=== PATIENT | female | born 1990 | race Caucasian/White ===

== ENCOUNTER 2024-07-31 08:00 | Inpatient (IN) ==
[2024-07-31] MEDS ORDERED: LIDOCAINE 1% LOCAL 20 ML VIAL INFIL PRN (08:11)
[2024-07-31] MEDS ORDERED: OXYTOCIN 30 UNITS/NSS 30 UNITS/500 ML BAG IV PRN (08:11)
[2024-07-31] MEDS: LACTATED RINGER'S 1,000 ML IV SCH (09:05)
[2024-07-31 09:13] LABS: Hematocrit (blood only) 30.1 % (37.0-47.0); Hemoglobin 9.6 g/dl (12.0-16.0); Mean Corpuscular Hemoglobin 25.5 pg (25.0-34.0); Mean Corpuscular Hgb Conc 31.9 g/dL (32.0-36.0); Mean Corpuscular Volume 79.8 fL (80.0-100.0); Mean Platelet Volume 12.2 fL (9.4-12.4); Nucleated RBC # (auto) 0.02 K/uL (0.00-0.12); Nucleated RBC % (auto) 0.2 %; Platelet Count 209 K/uL (130-400); RDW Coefficient of Variation 15.3 % (11.5-14.5); RDW Standard Deviation 44.5 fL (36.4-46.3); Red Blood Count 3.77 M/uL (4.20-5.40); White Blood Count 11.47 K/ul (4.8-10.8)
[2024-07-31] MEDS: OXYTOCIN 30 UNITS/NSS 30 UNITS/500 ML BAG IV PRN ×2 (09:52→20:24)
--- NOTE | 2024-07-31 09:53 | History & Physical Report ---
Date of Service July 31, 2024 Assessment & Plan (1) Mild pre-eclampsia: (2) Gestational diabetes: Plan 34 yo at 37 3/7 wga presents for IOL for pre-eclampsia w/o severe features VSS Fetus cat 1 Labor - 35cc berkowitz placed, will start pit PET - will get cmp today, bp wnl A1GDM, bg q4 GBS neg epidural prn Admission and Anticipated Discharge Date Admission Date: July 31, 2024 History of Present Illness Chief Complaint: IOL Primary Care Provider: NO PCP 34 yo at 37 3/7 wga presents for IOL for pre-eclampsia w/o severe features. 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 Date GA wks Lbr Lgth wt Sex Type del Anes Place Del Prov ? Comment 12/04/20 4 Aborted-Spontaneous 01/03/21 4 Aborted-Spontaneous 11/02/21 34 4lb 6oz F Epidu [facility] Yes severe pre- eclampsia denies hx stis Allergies Allergy/AdvReac Type Severity Reaction Status Date / Time pollen extracts Allergy Unknown Unknown Verified 07/30/24 15:12 Home Medications Medication Instructions Recorded Confirmed Type 21-iron fu-folic acid 1 tab PO DAILY 01/16/24 07/31/24 History [ Complete] acetone (urine) test (Ketone Urine #50 ea 03/22/24 07/30/24 Rx Test strips) blood sugar diagnostic (OneTouch #150 ea 03/22/24 07/30/24 Rx Verio test strips) blood-glucose meter (OneTouch #1 ea 03/22/24 07/30/24 Rx Verio Reflect Meter) lancets 33 gauge (OneTouch Delica #150 ea 03/22/24 07/30/24 Rx Plus Lancet) sertraline [Zoloft] 20 mg PO DAILY 04/03/24 07/31/24 History aripiprazole 2 mg tablet (Abilify) 2 mg PO DAILY 07/31/24 07/31/24 History aspirin 81 mg capsule 81 mg PO DAILY 07/31/24 07/31/24 History ferrous sulfate 325 mg (65 mg 325 mg PO DAILY 07/31/24 07/31/24 History iron) tablet (Iron (ferrous sulfate)) Patient History Medical History (spontaneous vaginal delivery) 2021 History of pre-eclampsia History of chicken pox Surgical History History of esophagogastroduodenoscopy (EGD) History of dental surgery Hx of colonoscopy Family History Father Heart disease Cancer Alcohol abuse Sister Heart disease Grandmother (Maternal) Heart disease Diabetes Mother Depression Dyslipidemia Anxiety Grandfather (Maternal) Colorectal cancer Denies family history of Ovarian cancer Prostate cancer Breast cancer Social History Smoking Status: Never smoker Second Hand Exposure: Yes; Do You Dip or Chew Tobacco: No; Tobacco Cessation Education Requested by Patient: No Hx Alcohol Use: No Hx Substance Use: No Preferred Language: Liberian Communication Ability: Effective Visual Impairment: No Limitations Hearing Ability: Normal Non Destructive Testing Supervisor Required: No Beliefs That Will Affect Care: None marital status: marital status details: Daniel Cobos (29) [phone] Current Living Situation: Spouse Current Living Situation Comment: Daniel- , Peach- 3y/o daughter current occupational status: employed 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, 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 How many Children do You have: 0 Other Information That Helps Us Care for You: No Feels Safe at Home: Yes Safety Concerns: Feels Safe At This Time Do you think of yourself as: straight/heterosexual Sexual Activity: has been sexually active within the last 12 months Gender Identity: Female Assistive Devices: None Physical Exam Genitourinary: OB Exam Abdomen: + vertex (confirmed by bsus) and + estimated weight (7-8) Manual OB Exam: + cervical dilation 2 cm, + cervical effacement 50% and + station -2 OB Exam Monitor Tracing: + external FHT monitor used, + external uterine monitor used and + category I (130/mod/+accel/- decel) Results & Data Vital Signs (Past 12 Hours) Vital Signs Temp Pulse Resp BP 07/31/24 09:28 103 H 131/87 07/31/24 08:39 98 H 137/91 07/31/24 08:37 98.1 F 98 H 20 137/91 Laboratory Results OB Labs: Blood Type A Positive 01/23/24 Antibody Screen NEGATIVE 01/23/24 Hgb 10.4 g/dl (12.0-16.0) L 07/26/24 Hct 33.5 % (37.0-47.0) L 07/26/24 MCV 81.5 fL (80.0-100.0) 07/26/24 Plt Count 239 K/uL (130-400) 07/26/24 Rubella IgG Antibody Immune (Immune) 01/23/24 RPR Nonreactive (Nonreactive) 01/23/24 Treponema pallidum Ab Negative (Negative) 07/26/24 Hep Bs Antigen Neg (Neg) 05/07/21 Hep Bs Antigen NON-REACTIVE (NON-REACTIVE) 01/23/24 Hepatitis C Ab (EIA) NON-REACTIVE (NON-REACTIVE) 01/23/24 HIV 1&2 Ab/P24 Ag 4thGn Neg (Neg) 05/07/21 HIV (1&2) Ag & Ab Conf NON-REACTIVE (NON-REACTIVE) 01/23/24 Glucose 1 Hr 50 gm 197 mg/dl (70-130) H 03/13/24 Maternal Serum AFP 41.1 ng/mL 06/29/21 OB Optional Labs: Chlamydia trachomatis RNA Not Detected (NotDetected) 01/23/24 Neisseria gonorrhoeae RNA Not Detected (NotDetected) 01/23/24 Alpha Fetoprotein Triple Screen SEE NOTE 06/29/21 Labs Reviewed: cf/sma declined cfdna-low risk--mln GBS neg Diagnostic Findings 07/26 EFW 73% 3193g ant plac Coding Level of Care Code None Diagnoses Mild pre-eclampsia in third trimester O14.03 Trimester: third trimester Gestational diabetes O24.419 (1) Mild pre-eclampsia Trimester: third trimester Qualified Code(s): O14.03 - Mild to moderate pre- eclampsia, third trimester
[2024-07-31 10:26] LABS: Albumin Globulin Ratio 1.2 (0.9-2); Albumin Level 2.9 gm/dl (3.4-5.0); BUN Creatinine Ratio 14.5 (10-20); Bilirubin,Total 0.3 mg/dl (0.2-1.0); Calcium 8.3 mg/dl (8.6-10.3); Creatinine Clr Calc Pharmacy 176.4 ml/min; Globulin 2.4 gm/dl (2.5-4.0); Potassium 3.5 mmol/L (3.5-5.1); Total Protein 5.3 gm/dl (6.0-8.3)
--- NOTE | 2024-07-31 14:26 | Labor Progress Brief Note ---
Date of Service July 31, 2024 Subjective berkowitz bulb out Assessment & Plan (1) Mild pre-eclampsia: Trimester: third trimester Qualified Code(s): O14.03 - Mild to moderate pre-eclampsia, third trimester (2) Gestational diabetes: Plan 34 yo at 37 3/7 wga presents for IOL for pre-eclampsia w/o severe features VSS Fetus cat 1 Labor - bulb out, pit at 12, now s/p arom PET - labs wnl A1GDM, bg q4 GBS neg epidural prn Admission and Anticipated Discharge Date Admission Date: July 31, 2024 Physical Exam Genitourinary: Manual OB Exam: + cervical dilation 4 cm, + cervical effacement 50%, + station -2 and + amniotic fluid (arom clear) OB Exam Monitor Tracing: + external FHT monitor used, + external uterine monitor used (q3-4) and + category I (130/mod/+accel/-decel) Results & Data Vital Signs (Past 12 Hours) Vital Signs Temp Pulse Resp BP 07/31/24 14:15 98.1 F 07/31/24 13:58 98 H 124/86 07/31/24 13:28 95 H 136/87 07/31/24 12:28 101 H 130/90 07/31/24 12:19 95 H 146/91 H 07/31/24 12:03 97.5 F L 98 H 16 155/92 H 07/31/24 11:28 96 H 146/81 H 07/31/24 10:59 106 H 137/86 07/31/24 10:28 97 H 133/82 07/31/24 09:58 102 H 136/91 07/31/24 09:28 103 H 131/87 07/31/24 08:39 98 H 137/91 07/31/24 08:37 98.1 F 98 H 20 137/91 Coding Level of Care Code None Diagnoses Mild pre-eclampsia in third trimester O14.03 Trimester: third trimester Gestational diabetes O24.419
[2024-07-31] MEDS ORDERED: fentANYL 2 MCG/ML BUPIVacaine 0.125%-NSS 100ML BAG EPI PRN (14:46)
[2024-07-31] MEDS ORDERED: LIDOCAINE 2% MPF LOCAL 5 ML VIAL EPI PRN (14:46)
[2024-07-31] MEDS ORDERED: NALOXONE HCL 1 MG in SODIUM CHLORIDE 0.9% 1,000 ML IV PRN (14:46)
[2024-07-31] MEDS ORDERED: NALOXONE HCL 0.4 MG/1 ML VIAL/CARP IV PRN (14:46)
[2024-07-31] MEDS ORDERED: NALBUPHINE HCL INJ 10 MG/ML AMP IV PRN (14:46)
[2024-07-31] MEDS ORDERED: fentaNYL citrate PF 100 MCG/2 ML VIAL EPI PRN (14:46)
[2024-07-31] MEDS ORDERED: ePHEDrine sulfate 50 MG/ML AMP IV PRN (14:46)
[2024-07-31] MEDS ORDERED: diphenhydrAMINE 50 MG/ML VIAL IV PRN (14:46)
[2024-07-31] MEDS ORDERED: BUPIVACAINE 0.25% PF 30 ML VIAL EPI PRN (14:46)
[2024-07-31] MEDS ORDERED: SODIUM CHLORIDE 0.9% PF INJ 10 ML VIAL EPI PRN (14:46)
[2024-07-31] MEDS ORDERED: ROPIVACAINE 0.5% PF 5 MG/ML 20 ML VIAL EPI PRN (14:46)
--- NOTE | 2024-07-31 14:46 | Anesthesiology Consultation ---
Date of Service July 31, 2024 Assessment & Plan (1) Encounter for pre-operative examination: Chart Review Chart Review: Patient NOT seen in Pre Admission Testing and Acceptable Risk for Labor Epidural Consults Requested none History Height/Weight Height: 5 ft 8 in Weight: 96.162 kg Allergies Allergy/AdvReac Type Severity Reaction Status Date / Time pollen extracts Allergy Unknown Unknown Verified 07/30/24 15:12 Medications Home Medications Medication Instructions Recorded Confirmed Last Taken 21-iron fu-folic acid 1 tab PO DAILY 01/16/24 07/31/24 07/17/24 22:00 [ Complete] acetone (urine) test (Ketone Urine #50 ea 03/22/24 07/30/24 Unknown Test strips) blood sugar diagnostic (OneTouch #150 ea 03/22/24 07/30/24 Unknown Verio test strips) blood-glucose meter (OneTouch #1 ea 03/22/24 07/30/24 Unknown Verio Reflect Meter) lancets 33 gauge (OneTouch Delica #150 ea 03/22/24 07/30/24 Unknown Plus Lancet) sertraline [Zoloft] 20 mg PO DAILY 04/03/24 07/31/24 07/31/24 06:00 aripiprazole 2 mg tablet (Abilify) 2 mg PO DAILY 07/31/24 07/31/24 07/30/24 21:00 aspirin 81 mg capsule 81 mg PO DAILY 07/31/24 07/31/24 07/31/24 06:00 ferrous sulfate 325 mg (65 mg 325 mg PO DAILY 07/31/24 07/31/24 07/31/24 06:00 iron) tablet (Iron (ferrous sulfate)) Active Medications Generic Name Dose Route Start Last Admin Trade Name Freq PRN Reason Stop Dose Admin Oxytocin 30 units in 500 mls @ 14 mls/hr 07/31/24 08:11 07/31/24 13:45 Pitocin 30 Units/Nss IV 08/02/24 08:10 0.84 units/hr .Q24H PRN 14 mls/hr Labor Induction/Augmentation Titration Protocol 0.84 UNITS/HR Past Medical History Medical History (spontaneous vaginal delivery) 2021 History of pre-eclampsia History of chicken pox Past Family History Family History Father Heart disease Cancer Alcohol abuse Sister Heart disease congenital heart defect--mitral valve Grandmother (Maternal) Heart disease Diabetes Mother Depression Dyslipidemia Anxiety Grandfather (Maternal) Colorectal cancer Denies family history of Ovarian cancer Prostate cancer Breast cancer Past Surgical History Surgical History History of esophagogastroduodenoscopy (EGD) History of dental surgery Hx of colonoscopy Social History Smoking Status: Never smoker Do You Dip or Chew Tobacco: No Hx Alcohol Use: No Alcohol type: wine alcohol intake frequency: a few times a month Hx Substance Use: No substance use type: does not use Physical Exam Vital Signs Last Vital Signs Temp 98.1 F 07/31/24 14:15 Pulse 101 H 07/31/24 14:43 Resp 16 07/31/24 12:03 BP 139/83 07/31/24 14:28 Pulse Ox 99 07/31/24 14:43 Testing Laboratory Results 07/31/24 08:40 07/31/24 08:40 Blood Type A Positive 07/31/24 08:40 Antibody Screen NEGATIVE 07/31/24 08:40 07/31/24 07/31/24 07/31/24 13:44 10:55 08:55 POC Glucose 81 89 130 H
[2024-07-31] MEDS: LIDOCAINE 2%/EPINEPHRINE 1:200,000 20 ML PF ONE (15:05)
[2024-07-31] MEDS: SODIUM CHLORIDE 0.9% PF INJ 10 ML VIAL ONE (15:05)
[2024-07-31] MEDS: fentANYL 2 MCG/ML BUPIVacaine 0.125%-NSS 100ML BAG ONE (15:05)
[2024-07-31] MEDS: fentaNYL citrate PF 100 MCG/2 ML VIAL ONE (15:05)
[2024-07-31] MEDS: BUPIVACAINE 0.25% PF 30 ML VIAL ONE (15:05)
[2024-07-31] MEDS: ePHEDrine sulfate 50 MG/ML AMP ONE (15:05)
--- NOTE | 2024-07-31 20:01 | Delivery Summary ---
Vaginal Delivery Summary Date of Service July 31, 2024 Vaginal Delivery Summary [facility] PREOPERATIVE DIAGNOSIS: 1. Single intrauterine at 37 3/7 wga 2. Pre-eclampsia without severe features 3. A1GDM 4. History of hemorrhage POSTOPERATIVE DIAGNOSIS: 1. Single intrauterine at 37 3/7 wga 2. Pre-eclampsia without severe features 3. A1GDM 4. History of hemorrhage 5. Delivered PROCEDURE: 1. Normal spontaneous vaginal delivery. SURGEON: Haylie Bermudez MD ANESTHESIA: Epidural. QUANTITATIVE BLOOD LOSS:115 mL FLUIDS: Continuous LR. URINE OUTPUT: None. COMPLICATIONS: None. CONDITION: Stable. INDICATIONS: 34 yo at 37 3/7 wga presented for IOL for pre-eclampsia without severe features. Induction was begun with berkowitz bulb and pitocin. Following bulb expulsion, she underwent arom and received an epidural. She progressed to complete and desired to push FINDINGS: A viable female infant, weight pending with Apgars of 7 and 8 at 1 and 5 minutes respectively. SPECIMEN: Cord blood OPERATIVE REPORT: The patient progressed to 10 cm, 100% effaced and +2 station, pushed over intact perineum with anesthesia to deliver a viable female infant, weight and Apgars as above. Head of delivered in JUNIOR position. Body cord was delivered through. Body and shoulders were delivered without difficulty. was delivered to maternal abdomen and nursing staff. Delayed cord clamping was performed for 60 seconds. Cord was clamped and cut. Cord blood was obtained. Placenta delivered spontaneously intact with 3-vessel cord. IV oxytocin and fundal massage were given for excellent hemostasis. Vagina, cervix, perineum, and placenta were inspected. A hemostatic periclitoral laceration did not need repaired. Sponge and needle counts correct x2. No sponges were left behind. Mother and stable in immediate period. [facility] Vaginal Delivery Charge Vaginal Delivery Codes: 03620 global code for the antepartum, delivery, and post- Delivery Type Details: [facility]
[2024-07-31] MEDS ORDERED: HYDROCORTISONE ACETATE 25 MG SUPP PR PRN (20:15)
[2024-07-31] MEDS ORDERED: bisacodyL 10 MG SUPP PR PRN (20:15)
[2024-07-31] MEDS: DIPHTHER/TETAN/PERTUS Vaccine (Tdap, Adol/Adult) 0.5mL IM ONE (20:31)
[2024-07-31] MEDS: LIDOCAINE 2%/EPINEPHRINE 1:200,000 20 ML PF EPI STA (20:48)
[2024-07-31] MEDS: BUPIVACAINE 0.25% PF 30 ML VIAL EPI STA (20:48)
[2024-07-31] MEDS: SODIUM CHLORIDE 0.9% PF INJ 10 ML VIAL EPI STA (20:48)
[2024-07-31] MEDS: fentaNYL citrate PF 100 MCG/2 ML VIAL EPI STA (20:48)
[2024-07-31] MEDS: DOCUSATE SODIUM 100 MG CAP PO SCH (20:49)
[2024-07-31] MEDS: miSOPROStoL 200 MCG TAB PR ONE (21:30)
[2024-07-31] MEDS: IBUPROFEN 600 MG TAB PO PRN (22:07)
[2024-07-31] MEDS: ACETAMINOPHEN 325 MG TAB PO PRN (22:07)
--- NOTE | 2024-07-31 22:09 | Communication Note ---
Date of Service: July 31, 2024 Called by nursing due to passage of clots with last fundal check. QBL 441 at that point. Fundus firm on my check, appropriate lochia. 1000mcg cytotec placed due to htn and hx asthma, extra bag of pitocin run
--- NOTE | 2024-07-31 22:17 | Anesthesia Procedure Note ---
Date of Service July 31, 2024 Anesthesia Post Epidural Note Vital Signs Vital Signs: Temp Pulse Resp BP Pulse Ox 98.1 F 112 H 18 143/89 H 100 07/31/24 19:00 07/31/24 21:59 07/31/24 19:00 07/31/24 21:59 07/31/24 20:03 Pain Intensity Abdomen: Pain Intensity: 0 Notes Mental Status: alert / awake / arousable and participated in evaluation Nausea / Vomiting: adequately controlled Pain: adequately controlled Airway Patency, RR, SpO2: stable & adequate BP & HR: stable & adequate Hydration State: stable & adequate Neuraxial Anesthesia: was administered and sensory block is resolving Anesthetic Complications: no major complications apparent and Pt Satisfied with anesthetic care Epidural: Removed without complications and With tip intact
[2024-07-31] MEDS ORDERED: Nursing to Pharmacy Communication SCH (23:15)
[2024-07-31] MEDS: ARIPIprazole 1 MG/ML ORAL SOLN 150 ML BTL PO SCH (23:15)
--- NOTE | 2024-08-01 05:33 | Obstetrical Progress Note ---
Date of Service August 01, 2024 Assessment & Plan (1) Encounter for care and examination after delivery: Plan Encourage ambulation Encourage breast feeding Monitor BPs Continue pain meds as needed Likely discharge 08/02/24 Admission and Anticipated Discharge Date Admission Date: July 31, 2024 Supervising Physician Co-Signing Physician Notes Resident Physician Supervision Note: I interviewed and examined the patient. Discussed with Dr. Rojas and agree with findings and plan as documented in the note. Any exceptions or clarifications are listed here: PP1 s/p . Low mild range BPs, exam benign and wnl. Will monitor bps today, ?dc at 24hrs if stable. Otherwise dc tomorrow Documented By: Haylie Bermudez MD Subjective Pt is 34 yo post- day 1 s/p at 37w3d. was complicated by pre-eclampsia without severe features and GDM. Ambulation:In room Voiding:voiding normally Passing gas: yes BM: yes Diet tolerance:regular diet Lochia:small amount bloody, no clots Feeding type: breast Current pain level: 4 /10 improved with ibuprofen and Tylenol Resting comfortably this morning in NAD. Denies العلي, CP, SOB, N/V/D, LE pain/swelling. Review of Systems Review of Systems: As per HPI Physical Exam Constitutional: WD/WN, vitals as above Respiratory: normal respiratory effort, lungs clear to auscultation Gastrointestinal (Abdomen): normal bowel sounds, soft, nontender, no hepatosplenomegaly Uterine fundus firm and 1 cm above level of umbilicus Neurologic: PERRL, EOMI, accommodation nl, no face palsy, no dysarthria Moving all 4 extremities on command Psychiatric: A+Ox3, euthymic affect Results & Data Vital Signs (Past 12 Hours) Vital Signs Temp Pulse Pulse Resp BP BP Pulse Ox 08/01/24 03:15 36.4 C L 102 H 18 137/91 97 07/31/24 23:00 36.7 C 108 H 20 137/90 97 07/31/24 22:05 37.1 C 112 H 18 143/89 H 07/31/24 21:59 112 H 143/89 H 07/31/24 21:44 108 H 144/88 H 07/31/24 21:29 108 H 150/93 H 07/31/24 21:14 112 H 148/93 H 07/31/24 20:59 111 H 139/80 07/31/24 20:44 107 H 149/83 H 07/31/24 20:34 113 H 148/75 H 07/31/24 20:29 120 H 161/80 H 07/31/24 20:14 116 H 152/81 H 07/31/24 20:03 123 H 100 07/31/24 19:58 110 H 137/78 97 07/31/24 19:55 110 H 134/94 07/31/24 19:53 112 H 96 07/31/24 19:48 118 H 96 07/31/24 19:43 117 H 100 07/31/24 19:39 120 H 127/73 07/31/24 19:38 124 H 100 07/31/24 19:33 123 H 100 07/31/24 19:28 111 H 99 07/31/24 19:24 111 H 137/82 07/31/24 19:23 108 H 97 07/31/24 19:18 106 H 98 07/31/24 19:13 116 H 97 07/31/24 19:09 115 H 134/83 07/31/24 19:08 123 H 100 07/31/24 19:03 119 H 99 07/31/24 19:00 18 07/31/24 19:00 36.7 C 18 07/31/24 19:00 16 07/31/24 19:00 16 07/31/24 18:58 110 H 98 07/31/24 18:55 111 H 148/81 H 07/31/24 18:53 114 H 98 07/31/24 18:48 114 H 99 07/31/24 18:43 116 H 99 07/31/24 18:38 106 H 98 07/31/24 18:33 105 H 98 07/31/24 18:30 16 07/31/24 18:30 16 07/31/24 18:28 106 H 98 07/31/24 18:25 103 H 140/86 07/31/24 18:23 103 H 97 07/31/24 18:18 100 H 96 07/31/24 18:15 36.6 C 07/31/24 18:13 106 H 97 07/31/24 18:09 104 H 139/87 07/31/24 18:08 101 H 97 07/31/24 18:03 100 H 96 07/31/24 18:00 16 07/31/24 18:00 16 07/31/24 17:58 104 H 96 07/31/24 17:54 104 H 142/85 H 07/31/24 17:53 105 H 98 07/31/24 17:48 106 H 98 07/31/24 17:43 109 H 98 07/31/24 17:39 107 H 131/81 07/31/24 17:38 111 H 98 07/31/24 17:33 109 H 99 07/31/24 17:30 16 07/31/24 17:30 16 O2 Del Method 08/01/24 03:15 Room Air 07/31/24 23:00 Room Air 07/31/24 22:05 07/31/24 21:59 07/31/24 21:44 07/31/24 21:29 07/31/24 21:14 07/31/24 20:59 07/31/24 20:44 07/31/24 20:34 07/31/24 20:29 07/31/24 20:14 07/31/24 20:03 07/31/24 19:58 07/31/24 19:55 07/31/24 19:53 07/31/24 19:48 07/31/24 19:43 07/31/24 19:39 07/31/24 19:38 07/31/24 19:33 07/31/24 19:28 07/31/24 19:24 07/31/24 19:23 07/31/24 19:18 07/31/24 19:13 07/31/24 19:09 07/31/24 19:08 07/31/24 19:03 07/31/24 19:00 07/31/24 19:00 07/31/24 19:00 07/31/24 19:00 07/31/24 18:58 07/31/24 18:55 07/31/24 18:53 07/31/24 18:48 07/31/24 18:43 07/31/24 18:38 07/31/24 18:33 07/31/24 18:30 07/31/24 18:30 07/31/24 18:28 07/31/24 18:25 07/31/24 18:23 07/31/24 18:18 07/31/24 18:15 07/31/24 18:13 07/31/24 18:09 07/31/24 18:08 07/31/24 18:03 07/31/24 18:00 07/31/24 18:00 07/31/24 17:58 07/31/24 17:54 07/31/24 17:53 07/31/24 17:48 07/31/24 17:43 07/31/24 17:39 07/31/24 17:38 07/31/24 17:33 07/31/24 17:30 07/31/24 17:30 Resident Activity Tracking Resident Involvement: Resident Care Provided Care Provided: Adult Hospital Medicine
[2024-08-01] MEDS: BENZOCAINE 20% SPRY 85 APPLN/85 GM CAN EXT PRN (07:13)
[2024-08-01 08:13] VITALS: RESP 16
[2024-08-01] MEDS: PRENATAL VITAMIN 1 TAB PO SCH (08:40)
[2024-08-01] MEDS: SERTRALINE HCL 50 MG TABLET PO SCH (08:40)
[2024-08-01] MEDS: FERROUS SULFATE 325 MG TAB PO SCH (08:40)
[2024-08-01] MEDS ORDERED: ARIPIprazole 1 MG/ML ORAL SOLN 150 ML BTL PO SCH (09:00)
[2024-08-01] MEDS: bisacodyL 5 MG TABEC PO SCH (19:27)
[2024-08-01] MEDS: ARIPIprazole 1 MG/ML ORAL SOLN 150 ML BTL PO SCH (19:27)
[2024-08-01 23:01] VITALS: BP 127/86; PULSE 73; TEMP 97.7; O2SAT 96
--- NOTE | 2024-08-02 05:58 | Obstetrical Progress Note ---
Date of Service August 02, 2024 Assessment & Plan (1) Encounter for care and examination after delivery: Plan Encourage ambulation Encourage breast feeding Monitor BPs Continue pain meds as needed Discharge today. Return to office for BP check in 1 week Admission and Anticipated Discharge Date Admission Date: July 31, 2024 Supervising Physician Co-Signing Physician Notes Resident Physician Supervision Note: I interviewed and examined the patient. Discussed with Dr. Lozada and agree with findings and plan as documented in the note. Any exceptions or clarifications are listed here: Doing well, ppd 2. Bps controlled. Plan d/c today. Instructions reviewed. f/u in one week for bp check. Documented By: Yoana Kwong MD, FACOG Subjective Pt is 34 yo post- day 2 s/p at 37w3d. was complicated by pre-eclampsia without severe features and GDM. Ambulation:In room Voiding:voiding normally Passing gas: yes BM: yes Diet tolerance:regular diet Lochia:small amount bloody, one large clot yesterday Feeding type: breast Current pain level: 3-4 /10 improved with ibuprofen and Tylenol Resting comfortably this morning in NAD. Denies العلي, CP, SOB, N/V/D, LE pain/swelling. Review of Systems Review of Systems: As per HPI Physical Exam Constitutional: WD/WN, vitals as above Respiratory: normal respiratory effort, lungs clear to auscultation Gastrointestinal (Abdomen): normal bowel sounds, soft, nontender, no hepatosplenomegaly Uterine fundus is 1 cm below level of umbilicus Neurologic: PERRL, EOMI, accommodation nl, no face palsy, no dysarthria Psychiatric: A+Ox3, euthymic affect Results & Data Vital Signs (Past 12 Hours) Vital Signs Temp Pulse Resp BP Pulse Ox O2 Del Method 08/01/24 23:00 36.5 C 73 16 127/86 96 Room Air 08/01/24 19:01 36.4 C L 84 16 137/91 95 Room Air Resident Activity Tracking Resident Involvement: Resident Care Provided Care Provided: Adult Hospital Medicine
== END 2024-08-02 09:30 | disposition home or self-care (01) | DRG 807 ==
LOC: 4S1 08:00 → 4E2 22:45